=== PATIENT | female | born 1970 | race Caucasian/White ===

== ENCOUNTER 2017-07-12 11:34 | Day surgery (SDC) | payer OTHER ==
[~2017-07-12] VITALS: Ht 157.5 cm; Wt 66.5 kg
[2017-07-12] VITALS (12 sets, daily range): BP systolic 126–145; BP diastolic 72–87; PULSE 67–103; RESP 12–20; Ht 157.5 cm; Wt 66.5 kg
[2017-07-12] MEDS ORDERED: MEDR2.5T21 PO (12:13)
[2017-07-12] MEDS ORDERED: LACTATED RINGER'S 1,000 ML IV SCH (12:30)
[2017-07-12 12:49] LABS: BASOPHILS % 0.3 % (0.0-2.0); EOSINOPHILS # 0.1 10^3/ul (0.0-0.5); EOSINOPHILS % 1.4 % (0.0-7.0); HEMATOCRIT 28.7 % (37.0-47.0); LYMPHOCYTES # 2.4 10^3/ul (0.8-2.9); LYMPHOCYTES % 24.9 % (15.0-51.0); MEAN CORPUSCULAR HEMOGLOBIN 25.1 pg (29.0-33.0); MEAN CORPUSCULAR HGB CONC 31.4 g/dl (32.0-37.0); MEAN CORPUSCULAR VOLUME 80.2 fl (82.0-101.0); MEAN PLATELET VOLUME 9.1 fl (7.4-10.4); MONOCYTE # 0.7 10^3/ul (0.3-0.9); MONOCYTES % 6.7 % (0.0-11.0); NEUTROPHIL # 6.4 10^3/ul (1.6-7.5); NEUTROPHILS % 66.2 % (39.0-77.0); PLATELET COUNT 271 10^3/UL (140-415); RED BLOOD COUNT 3.58 10^6/ul (4.20-5.40); RED CELL DISTRIBUTION WIDTH 14.5 % (11.5-14.5); WHITE BLOOD COUNT 9.7 10^3/ul (4.8-10.8)
[2017-07-12 13:02] LABS: HOLD TRANSMISSIONS 1
--- NOTE | 2017-07-12 14:30 | HP ---
Date/Time of Note Date/Time of Note DATE: 07/12/17 TIME: 14:25 Assessment/Plan VTE Prophylaxis VTE Prophylaxis Intervention: ambulation Lines/Catheters IV Catheter Type (from Nrs): Peripheral IV Assessment/Plan Assessment/Plan metromenorrhagia perimenopausal had normal BX 3 years ago will do hysteroscopy and fractional D&C HPI/ROS Admit Date/Time Admit Date/Time 07/12/2017 Hx of Present Illness 46 y/o female with Hx of metromenorrhagia X months here for hysteroscopy and Fractional D&C ROS bleeding is controlled with progesterone PO Constitutional: improved, no complaints Eyes: no complaints ENT: no complaints Respiratory: no complaints Cardiovascular: no complaints Gastrointestinal: no complaints Genitourinary: no complaints, other (currently has no vaginal bleeding ) Musculoskeletal: no complaints Skin: no complaints Neurologic: no complaints Endocrine: no complaints Lymphatic: no complaints Psychological: nl mood/affect, no complaints Immunologic: no complaints PMH/Family/Social Past Medical History Medical History: other (metrorrhagia) Past Surgical History Past Surgical Hx: other (previous C/S X 2 ) Social History Alcohol Use: none Smoking Status: Never smoker Drug Use: none Exam/Review of Systems Vital Signs Vitals Vital Signs Date Time Temp Pulse Resp B/P Pulse Ox O2 Delivery O2 Flow Rate FiO2 07/12/17 12:19 98.5 78 16 130/87 97 Room Air Exam Constitutional: alert, oriented, well developed Psych: nl mood/affect, no complaints Head: atraumatic, normocephalic Eyes: EOMI, PERRL, nl conjunctiva, nl lids, nl sclera ENMT: nl external ears & nose, nl lips & teeth, nl nasal mucosa & septum Neck: non-tender, supple Respiratory: clear to auscultation, normal air movement Cardiovascular: nl pulses, regular rate and rhythm Gastrointestinal: nl liver, spleen, non-tender, soft Genitourinary - Female: uterus (normal size : noadnexal mases ) Musculoskeletal: nl extremities to inspection Extremities: normal pulses Neurological: PLAYGROUND MONITOR II-XII intact, nl mental status, nl speech, nl strength Skin: nl turgor, No rash or lesions Lymph: nl lymph nodes Labs Result Diagram: 07/12/17 1238 Medications Medications Current Medications Lactated Ringer's (Lr) 1,000 ml @ 30 mls/hr Q24H IV ; Start 07/12/17 at 12:30 DO WADSWORTH MD Jul 12, 2017 14:30
[2017-07-12] MEDS ORDERED: CEFAZOLIN 1 GM INJ ONE (14:35)
[2017-07-12] MEDS ORDERED: MIDAZOLAM 1 MG/ML 2 ML INJ ONE (14:35)
[2017-07-12] MEDS ORDERED: FAMOTIDINE 20 MG INJ ONE (14:44)
[2017-07-12] MEDS ORDERED: LIDOCAINE 2% (SDV) 5 ML INJ ONE (14:44)
[2017-07-12] MEDS ORDERED: PROPOFOL 20 ML ONE (14:44)
[2017-07-12] MEDS ORDERED: DEXAMETHASONE 4 MG/ML 1 ML INJ ONE ×2 (14:44)
[2017-07-12] MEDS ORDERED: ONDANSETRON 4 MG INJ ONE (14:44)
[2017-07-12] MEDS ORDERED: EPHEDrine SULFATE 50 MG/5 ML SYG ONE (15:10)
[2017-07-12] MEDS ORDERED: KETOROLAC 30 MG INJ ONE ×2 (15:13)
--- NOTE | 2017-07-12 15:23 | OPPN ---
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 annette Underwood) Estimated blood loss: minimal Transfusion Required none Specimen Endometrial biopsy Endocervical biopsy Endometrial curettings Endocervical curettings Grafts/Implants none Complications none DO WADSWORTH MD Jul 12, 2017 15:23
[2017-07-12] MEDS ORDERED: DOXYCYCLINE 100 MG TAB PO ONE (15:30)
[2017-07-12] MEDS ORDERED: HYDROmorphONE (0.2 MG/ML) 10ML SYG IV ONE (15:57)
[2017-07-12] MEDS ORDERED: HYDROmorphONE (0.2 MG/ML) 10ML SYG IV PRN ×3 (16:00)
--- NOTE | 2017-07-12 16:02 | OPR ---
DATE OF OPERATION: 07/12/2017 PREOPERATIVE DIAGNOSES: Abnormal uterine bleeding and menometrorrhagia. POSTOPERATIVE DIAGNOSES: Status post hysteroscopy and fractional dilatation of cervix and curettage OPERATION PERFORMED: Dilatation of cervix and curettage. SURGEON: DO WADSWORTH MD. ANESTHESIOLOGIST: JIMMIE TAM MD. TYPE OF ANESTHESIA: General. PROCEDURE IN DETAIL: The patient was placed on the OR table in supine position. After induction of general anesthesia, the patient was taken to the lithotomy position. Perineal and vaginal area wer e prepped and draped for usual vaginal procedure. Under satisfactory anesthesia, a weighted speculu m was inserted into vagina. Anterior lip of the cervix was secured with an Allis clamp. Cervix was brought down to operative field. A 5 mm hysteroscope was introduced into cervical canal and with h ydropressure the cervix was dilated and hysteroscope easily entered the uterine cavity. Uterine cav ity appeared to be intact. Both ostia were observed. No evidence of endometrial polyps and/or sub mucous myoma seen. However, the uterine cavity appeared to be grossly enlarged. The endometrial ti ssue that was floating inside the cavity was biopsied on the way out of the uterus so endocervical t issue was also biopsied, the floating portion. First endocervical curettings were performed and spe cimen was sent for pathology and afterwards uterine curetting was also done to make sure no endometr ial tissue was left. The hysteroscope was then reintroduced inside the uterine cavity. Uterine cav ity appeared to be clean at this portion. After removal of hysteroscope, all of the instruments wer e removed from vaginal cavity. The patient was carefully returned to supine position and was transf erred to postanesthesia recovery room in good condition. ESTIMATED BLOOD LOSS: Less than 5 mL. Dictated By: DO VARELA/SUNG Conf#: [id number] DID#: [id number]
== END 2017-07-12 17:01 | disposition home or self-care (01) ==
LOC: SDS 11:34
PROVIDERS: ATTEND Obstetrics & Gynecology
DX: N92.1 Excessive and frequent menstruation with irregular cycle (principal); N92.4 Excessive bleeding in the premenopausal period; I10 Essential (primary) hypertension
CPT/HCPCS: 58558; 85025; 88305; J0690; J1100; J1170; J1885; J2250; J2405; Z7512; Z7610